=== PATIENT | male | born 1950 | race Caucasian/White ===

== ENCOUNTER 2021-05-20 14:38 | Outpatient (CLI) | payer MEDICARE ==
[~2021-05-20 14:38] MED LIST: ACET-1025 PO; ALFU10TA PO; ATOR40TA PO; CHOL400T14 PO; CITA20TA28 PO; CYAN-51 PO; DOCU100C40 PO; KRIL1CAP PO; LISI40TA13 PO; OMEP40CA21 PO; TROS20TA4 PO
== END 2021-05-20 23:59 | disposition home or self-care (01) ==
LOC: VAS 14:38
PROVIDERS: ATTEND Physician Assistant
DX: M25.511 Pain in right shoulder (principal); M79.89 Other specified soft tissue disorders; Z96.611 Presence of right artificial shoulder joint
CPT/HCPCS: 93971